=== PATIENT | male | born 1950 | race Caucasian/White ===

== ENCOUNTER 2018-05-01 05:45 | Day surgery (SDC) | payer OTHER ==
[~2018-05-01 05:45] MED LIST: AMILODIPINE PO; ATORVASTATIN CA20 MG PO; AVAPRO300 MG PO; CATAPRES0.3 M1 PO; CLOPIDOGREL BIS75 MG PO; FEOSOL325 MG PO; FISH OIL + D31 EACH PO; FOLIC ACID1 MG PO; GABAPENTIN800 MG PO; GLIPIZIDE10 MG PO; HUMULIN 70100 UNIT/2; HYDRALAZINE HC100 MG PO; IBRA PO; JANUVIA25 MG PO; NEPHRONEX-SL T1 EACH PO; PENTOXIFYLLINE PO; PROTONIX40 M1 PO; RENAL VITAMIN0.8 MG PO; VIT C-ROSE HIP500 MG PO
[2018-05-01] MEDS ORDERED: PERCOCET 5-3251 EACH PO (09:44)
[2018-05-01] MEDS ORDERED: RECTICARE30 GM TOP (09:45)
== END 2018-05-01 12:10 | disposition home or self-care (01) ==
LOC: CIR.AMB 05:45
DX: C21.0 Malignant neoplasm of anus, unspecified (principal)